=== PATIENT | male | born 2005 | race Caucasian/White ===

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

== ENCOUNTER 2024-06-03 13:37 | Emergency (ER) | payer MEDICAID, SELFPAY ==
[2024-06-03 14:16] VITALS: BP 113/74; PULSE 54; RESP 16; TEMP 36.6; O2SAT 98
[2024-06-03] MEDS: tetracaine 0.5% Op Soln 4 mL Btl 1 DROP EYE-LEFT (15:34)
[2024-06-03] MEDS: fluorescein 1 mg Strip EYE-LEFT (15:34)
--- NOTE | 2024-06-03 15:40 | ED_ITS ---
HPI - Eye Problem General: Chief complaint: Eye Problems Stated complaint: something in eye Time Seen by Provider: 06/03/24 14:23 Source: patient Mode of arrival: ambulatory Limitations: no limitations History of Present Illness: Patient is a 19-year-old male presenting to the emergency department complaining of left eye pain beginning suddenly onset prior to arrival. States he was walking outside in an unknown object floating to the air got in his eye, he has had irritation since. Reports sensitivity to light. He is denying any visual changes. Does not wear contacts. No fevers or other symptoms reported. He does state that he washed his eye out multiple times prior to presenting. MD chief complaint: eye pain and eye injury Onset (ago): minute(s) Onset description: sudden Duration: constant Location: left eye Eye Symptoms: pain and photophobia Place: street/outdoors Associated symptoms: Denies fever(s), headache(s), nausea or vomiting Related Data Home Medications Medication Instructions Recorded Confirmed clonidine HCl 0.3 mg tablet 0.3 mg PO BEDTIME 11/16/22 11/22/23 albuterol sulfate 90 mcg/actuation 2 puff inhalation QID PRN 11/18/22 11/22/23 aerosol inhaler Shortness Of Breath amitriptyline 25 mg tablet 25 mg PO BEDTIME PRN Sleep 11/22/23 11/22/23 fluticasone propionate 50 2 spray intranasal DAILY PRN 11/22/23 11/22/23 mcg/actuation nasal Allergy Symptoms spray,suspension (Flonase Allergy Relief) Previous Rx's Medication Instructions Recorded diclofenac potassium 50 mg tablet 50 mg PO BID PRN pain #20 tabs 11/22/23 ondansetron 8 mg disintegrating 8 mg PO .q6 PRN nausea and 11/22/23 tablet vomiting #14 tabs [id number] 3.5 1 drp ophthalmic (eye) Q12H #5 mL 06/03/24 mg/mL-10,000 unit/mL-0.1% eye drops (Maxitrol) Allergies Allergy/AdvReac Type Severity Reaction Status Date / Time No Known Allergies Allergy Verified 06/03/24 14:19 Review of Systems General: Reports: 10 or more systems reviewed and unremarkable except in HPI and below Const: Denies: fever(s) Eyes: Reports: photophobia and eye discomfort; Denies: change in vision, blurry vision or eye discharge Card: Denies: chest pain Resp: Denies: dyspnea GI: Denies: abdominal pain, nausea, vomiting or diarrhea Skin/Breast: Denies: rash Neuro: Denies: headache(s) PFSH ED PFSH: Medical History Insomnia ADHD Spontaneous pneumothorax Surgical History No pertinent past surgical history Family History Grandfather CAD (coronary artery disease) Grandmother CAD (coronary artery disease) Denies family history of Diabetes Cancer Hypertension Stroke Social History Smoking and tobacco/nicotine status: never used tobacco/nicotine Alcohol intake: current Alcohol intake frequency: 0-2 Drinks per Day Substance/Drug Use: current Substance/Drug use frequency: daily Adopted: No Lives independently: Yes Household members: none Housing: Manufactured/Mobile home Marital status: Single Pets and animals: Yes Pets & animals: dog(s) Physical Exam Const: COMMON NORMALS: no acute distress, patient oriented x3, no limitations and healthy appearing GENERAL APPEARANCE: cooperative ORIENTATION/CONSCIOUSNESS: Yes awake HENMT: COMMON NORMALS: normocephalic and atraumatic HEAD & SCALP: normocephalic and atraumatic Eye: COMMON NORMALS: Equal, round and reactive pupils present and EOMs intact bilaterally VISUAL ACUITY: Yes acuity normal PERIORBITAL: periorbital findings normal EYELID: eyelids normal CONJUNCTIVA: Yes conjunctival abnormal positive left (Mild injection diffuse) PUPIL: Yes Equal, round and reactive pupils present SLIT LAMP EXAM: Yes slit lamp exam performed with fluorescein, Yes lids/lashes/lacrimal system Lids/lashes/lacrimal system details: normal appearing and Yes cornea (Questionable abrasion just superior to the iris on the left) Neck/C-Spine: COMMON NORMALS: full ROM and no meningeal signs Resp: COMMON NORMALS: normal respiratory effort and No use of accessory muscles Extremity: COMMON NORMALS: normal to inspection and full ROM Neuro: COMMON NORMALS: patient oriented x3 and moves all extremities MENINGEAL SIGNS: Yes no meningeal signs Skin: COMMON NORMALS: no rashes or lesions noted GENERAL SKIN EXAM: no rashes or lesions noted Course Vital Signs: Vital signs: Vital Signs Temperature 98 F 06/03/24 14:16 Pulse Rate 54 L 06/03/24 14:16 Respiratory Rate 16 06/03/24 14:16 Blood Pressure 113/74 06/03/24 14:16 Pulse Oximetry 98 06/03/24 14:16 Oxygen Delivery Me thod Room Air 06/03/24 14:16 MDM - Eye Problem Medical Decision Making Patient reported injury to left eye after something flew in it while walking outside. Slit-lamp examination here was ultimately unremarkable, potentially a questionable uptake with fluorescein just superior to the iris on the left. There is very likely he did flush out the foreign object prior to presenting as he states he did this copiously. Upon examination here there is no evidence of a foreign body. He will be referred to ophthalmology as needed, will prescribe the Maxitrol prophylactically. He does report relieved after receiving tetracaine here. Patient discharged home at this time. No radiology studies performed this visit Discharge Plan Discharge Patient Disposition: Home Clinical Impression: Abrasion, corneal Condition: Stable Prescriptions: New neomycin-polymyxin B-dexameth [Maxitrol] 3.5mg/mL-10,000 unit/mL-0.1 % drops,suspension 1 drp ophthalmic (eye) Q12H Qty: 5 0RF No Action clonidine HCl 0.3 mg tablet 0.3 mg PO BEDTIME albuterol sulfate 90 mcg/actuation Hfa Aerosol Inhaler 2 puff INHALATION QID PRN (Reason: Shortness Of Breath) amitriptyline 25 mg tablet 25 mg PO BEDTIME PRN (Reason: Sleep) Flonase Allergy Relief 50 mcg/actuation spray,suspension 2 spray intranasal DAILY PRN (Reason: Allergy Symptoms) Rx Instructions: administer into each nostril ondansetron 8 mg tablet,disintegrating 8 mg PO .q6 PRN (Reason: nausea and vomiting) Qty: 14 0RF diclofenac potassium 50 mg tablet 50 mg PO BID PRN (Reason: pain) Qty: 20 0RF Discharge Orders: Discharge ED (Routine); Ordered 06/03/24 Ordered By: Victorino Denson Referrals: Gee Encarnacion MD [Primary Care Provider] - Patient Instructions: Corneal Abrasion (ED) Activity Restrictions/Additional Instructions: Follow-up with ophthalmology as needed. Maxitrol eyedrops. Continue flushing of the eye. Return with any new or worsening. Follow-up with primary care. Coding Level of Care Code ED [employer] for Sha Villalobos
[2024-06-03 16:10] VITALS: BP 111/68; PULSE 52; O2SAT 98
--- NOTE | 2024-06-04 01:09 | DCPLANNER ---
Referral to [facility] for follow up
== END 2024-06-03 16:11 | disposition home or self-care (01) ==
PROVIDERS: Emergency Provider Physician Assistant; PCP Pediatrics
DX: S05.02XA Injury of conjunctiva and corneal abrasion without foreign body, left eye, initial encounter (principal); X58.XXXA Exposure to other specified factors, initial encounter
CPT/HCPCS: 99283

== ENCOUNTER 2024-06-12 18:05 | Emergency (ER) | payer MEDICAID, SELFPAY ==
[2024-06-12 18:10] VITALS: BP 125/71; PULSE 69; RESP 17; TEMP 36.8; O2SAT 96; BMI 18.2
[2024-06-12 18:48] VITALS: BP 131/73; O2SAT 100
[2024-06-12] MEDS: prochlorperazine 10 mg/2 mL Inj IVP ×2 (18:56→22:10)
[2024-06-12] MEDS: sodium chloride 0.9% 1,000 ML 999 ML IV ×2 (18:56→20:05)
[2024-06-12 19:11] LABS: Basophils % 0.2 %; Eosinophils % 0.1 %; Hematocrit 43.6 % (37-53); Lymphocytes # 0.9 10^3/uL (1.5-6.5); Lymphocytes % 5.3 %; Mean Corpuscular HGB Conc 34.4 g/dL (30-55); Mean Corpuscular Hemoglobin 28.4 pg (27-33); Mean Corpuscular Volume 82.6 fl (82-101); Mean Platelet Volume 9.2 fL (7.4-10.4); Monocytes # 0.8 10^3/uL (0.2-0.9); Monocytes % 4.4 %; Neutrophils # 15.85 10^3/uL (1.8-8.0); Neutrophils % 89.5 %; Nucleated Red Blood Cells % 0 %; Platelet Count 430 10^3/cmm (157-399); Red Blood Count 5.28 10^6/uL (3.85-5.65); Red Cell Distribution Width 12.5 % (12.1-15.1); White Blood Count 17.69 10^3/uL (4.5-13.0)
[2024-06-12 19:26] LABS: Alanine Aminotransferase 23 U/L (0-41); Albumin Level 5.3 g/dL (3.5-5.2); Alkaline Phosphatase 111 U/L (40-130); Aspartate Amino Transferase 22 U/L (0-40); Blood Urea Nitrogen 17 mg/dL (6-20); Calcium 9.7 mg/dL (8.5-10.5); Carbon Dioxide 21 mmol/L (22-29); Chloride 100 mmol/L (98-107); Creatinine Clr Calc Pharmacy 113.3979; Globulin 2.2 g/dL (1.3-4.6); Glomerular Filtration Rate 123.2 mL/min (90-130); Glucose 146 mg/dL (65-115); Lipase 10 U/L (13-60); Osmolality Calculated 294 mOsm/kg (285-295); Sodium 140 mmol/L (136-145); Total Bilirubin 0.9 mg/dL (0.15-1.2); Total Protein 7.5 g/dL (6.6-8.7)
--- NOTE | 2024-06-12 19:26 | CTR_ITS ---
PROCEDURE INFORMATION: Exam: CT Abdomen And Pelvis With Contrast Exam date and time: 06/12/2024 7:37 PM Age: 19 years old Clinical indication: Pain and abnormal findings; Abnormal lab test; Elevated wbc; Nausea and vomiting; Abdominal pain; Generalized; Patient HX: C/O persistent abd pain with n/v since eating sonic yesterday. Wbc of 17k. ; Additional info: Abdominal pain, nausea vomiting, leukocytosis TECHNIQUE: Imaging protocol: Computed tomography of the abdomen and pelvis with contrast. Radiation optimization: All CT scans at this facility use at least one of these dose optimization techniques: automated exposure control; mA and/or kV adjustment per patient size (includes targeted exams where dose is matched to clinical indication); or iterative reconstruction. Contrast material: OMNI 350; Contrast volume: 80 ml; Contrast route: INTRAVENOUS (IV); COMPARISON: CT abdomen pelvis w con* [id number] 11/17/2022 1:45 AM RADIATION DOSE METRICS: Total DLP (mGy-cm): 202.33 FINDINGS: Liver: Normal. No mass. Gallbladder and biliary ducts: Normal. No calcified stones. No ductal dilation. Pancreas: Normal. No ductal dilation. Spleen: Normal. No splenomegaly. Adrenal glands: Normal. No mass. Kidneys and ureters: Normal. No hydronephrosis. Stomach and bowel: Unremarkable. No obstruction. No mucosal thickening. Appendix: No evidence of appendicitis. Intraperitoneal space: Unremarkable. No free air. No significant fluid collection. Vasculature: Unremarkable. No abdominal aortic aneurysm. Lymph nodes: Unremarkable. No enlarged lymph nodes. Urinary bladder: Unremarkable as visualized. Reproductive: Unremarkable as visualized. Bones/joints: Unremarkable. No acute fracture. Soft tissues: Unremarkable. CT/CT abdomen pelvis w con* [id number] IMPRESSION: No acute findings.
[2024-06-12 19:27] LABS: Lactic Sepsis W/Reflex 3.6 mmol/L (0.5-2.2)
[2024-06-12 19:28] LABS: Anion Gap 22.7 (5-19); Potassium 3.7 mmol/L (3.5-5.1)
[2024-06-12] MEDS: iohexol 350 mg/mL 500 mL Btl (per mL) IV (19:41)
[2024-06-12 20:33] LABS: Bilirubin Urine Negative (Negative); Blood Urine Negative (Negative); Glucose Urine UA Negative (Normal); Ketones Urine 3+ (Negative); Leukocyte Esterase Urine Negative (Negative); Nitrate Urine Negative (Negative); Protein Urine 2+ (Negative); Urine Appearance Clear (CLEAR); Urine Color Yellow (Yellow); pH Urine >=9.0 (5-7)
[2024-06-12 20:37] VITALS: BP 97/50; PULSE 97; O2SAT 100
[2024-06-12 20:38] LABS: Add Urine Microscopic? YES; Bacteria Urine None Seen /hpf; RBC Urine 0-2 /hpf (0-2); Squamous Epithelial Cell Urine 0-5 /hpf (0-5); WBC Urine 0-5 /hpf (0-5)
[2024-06-12 20:39] LABS: Specific Gravity, Urine 1.087 (1.005-1.030)
[2024-06-12 20:56] LABS: Reflex Lactate Order REFLEX LACTIC ORDERD
--- NOTE | 2024-06-12 21:42 | W.ED.NAVMDI ---
HPI - Nausea/Vomiting/Diarrhea General: Chief complaint: Nausea/Vomiting/Diarrhea Stated complaint: believes food poisoning Time Seen by Provider: 06/12/24 18:18 History of Present Illness: Patient is a 19-year-old male that presents to the emergency department with complaints of epigastric pain nausea and vomiting. Onset of symptoms last night after eating at [employer]. States he is trialed Zofran without relief. Patient is ill-appearing. He is pale. Patient has a medical history that includes ADHD, insomnia, prior spontaneous pneumothorax Associated nausea: Yes Associated symtoms: Reports fatigue and nausea; Denies bloating, chest pain, dizziness, dysuria, headache(s), malaise or palpitations Related Data Home Medications Medication Instructions Recorded Confirmed clonidine HCl 0.3 mg tablet 0.3 mg PO BEDTIME 11/16/22 11/22/23 albuterol sulfate 90 mcg/actuation 2 puff inhalation QID PRN 11/18/22 11/22/23 aerosol inhaler Shortness Of Breath amitriptyline 25 mg tablet 25 mg PO BEDTIME PRN Sleep 11/22/23 11/22/23 fluticasone propionate 50 2 spray intranasal DAILY PRN 11/22/23 11/22/23 mcg/actuation nasal Allergy Symptoms spray,suspension (Flonase Allergy Relief) Previous Rx's Medication Instructions Recorded diclofenac potassium 50 mg tablet 50 mg PO BID PRN pain #20 tabs 11/22/23 ondansetron 8 mg disintegrating 8 mg PO .q6 PRN nausea and 11/22/23 tablet vomiting #14 tabs [id number] 3.5 1 drp ophthalmic (eye) Q12H #5 mL 06/03/24 mg/mL-10,000 unit/mL-0.1% eye drops (Maxitrol) prochlorperazine maleate 10 mg 10 mg PO Q8H PRN nausea and 06/12/24 tablet (Compazine) vomiting 2 days #7 tabs promethazine 12.5 mg rectal 12.5 mg CA TID PRN nausea and 06/12/24 suppository vomiting #12 ea Allergies Allergy/AdvReac Type Severity Reaction Status Date / Time No Known Allergies Allergy Verified 06/03/24 14:19 Review of Systems General: Reports: 10 or more systems reviewed and unremarkable except in HPI and below Const: Reports: change in appetite and fatigue; Denies: fever(s), chills, change in weight or malaise Card: Denies: chest pain, palpitations, irregular heart rhythm, edema, dyspnea on exertion, orthopnea or leg pain with exertion Resp: Denies: dyspnea, productive cough, non-productive cough, wheezing, stridor or chest congestion GI: Reports: abdominal pain, nausea and vomiting; Denies: dysphagia, diarrhea, constipation, bloating, GI cramping or hematochezia : Denies: flank pain, dysuria, urinary frequency, urinary urgency, urinary hesitancy, oliguria or hematuria Neuro: Denies: headache(s), numbness in extremities, weakness in extremities, sensory changes, lack of coordination, difficulty walking, frequent falls, dizziness, confusion, Slurred speech present, difficulty communicating thoughts, seizure-like activity or involuntary movements Endo: Denies: polyuria, polydipsia or tired all the time PFSH ED PFSH: Medical History Insomnia ADHD Spontaneous pneumothorax Surgical History No pertinent past surgical history Family History Grandfather CAD (coronary artery disease) Grandmother CAD (coronary artery disease) Denies family history of Diabetes Cancer Hypertension Stroke Social History Smoking and tobacco/nicotine status: never used tobacco/nicotine Alcohol intake: current Alcohol intake frequency: 0-2 Drinks per Day Substance/Drug Use: current Substance/Drug use frequency: daily Adopted: No Lives independently: Yes Household members: none Housing: Manufactured/Mobile home Marital status: Single Pets and animals: Yes Pets & animals: dog(s) Physical Exam Const: COMMON NORMALS: no acute distress, average body habitus, patient oriented x3, no limitations, alert and well nourished HENMT: COMMON NORMALS: normocephalic, atraumatic, hearing grossly normal bilaterally, external ears normal, Normal external nose present, moist oral mucous membranes and oropharynx normal HEAD & SCALP: normocephalic and atraumatic NOSE: Normal external nose present EXTERNAL EAR: Yes external ears normal Neck/C-Spine: COMMON NORMALS: no JVD Chest: COMMONS NORMALS: normal inspection of the chest and normal palpation of entire chest wall Resp: COMMON NORMALS: normal respiratory effort, No retractions, No use of accessory muscles and clear to auscultation bilaterally AUSCULTATION: clear to auscultation bilaterally Cardio: COMMON NORMALS: no JVD, regular rhythm, S1 normal heart sound present, S2 normal heart sound present, No gallops present (Cardio), No clicks present (Cardio), No murmurs present (Cardio) and No rub (Cardio); negative for regular rate (Tachycardia) RATE: abnormal rate (Tachycardia) RHYTHM: regular rhythm HEART SOUNDS: S1 normal heart sound present and S2 normal heart sound present GI: COMMON NORMALS: Normal to inspection, nondistended, normoactive bowel sounds present, Soft to palpation, No hepatosplenomegaly present and no masses PALPATION: Yes Soft to palpation, Yes Tenderness to palpation present (GI) (Diffuse), No Guarding due to palpation present (GI), No Rigid due to palpation and Yes No hepatosplenomegaly present Neuro: COMMON NORMALS: patient oriented x3 SENSORIUM/ORIENTATION: Yes alert Course Vital Signs: Vital signs: Vital Signs Temperature 98.3 F 06/12/24 18:10 Pulse Rate 103 H 06/12/24 22:00 Respiratory Rate 18 06/12/24 22:00 Blood Pressure 126/61 06/12/24 22:46 Pulse Oximetry 95 06/12/24 22:00 Oxygen Delivery Me thod Room Air 06/12/24 22:00 MDM - Nausea/Vomiting/Diarrhea Medical Decision Making Patient is a 19-year-old male that presents to the emergency department with epigastric abdominal pain nausea and vomiting since eating at [employer] last night. Patient has trialed home Zofran without relief. Here in the emergency department he underwent a laboratory evaluation that included CBC, CMP, lipase, lactic and urinalysis. Lactic acid was elevated he had a white count of 17,000. I ordered a CT of the abdomen pelvis with contrast. Imaging reveals no acute abnormality. Patient was given 2.5 L of normal saline and Compazine. He reported much improvement in his symptoms. When reevaluated he reports that his symptoms have resolved. Due to his last set of 3.6, I did elect to wait for the reflex lactic which was 0.8. Patient did require another dose of Compazine. Heart rate has improved pain much better. Patient is going to be sent home with another dose of Compazine p.o. Unfortunately, we do not carry any rectal antiemetics to send home with him as a rescue med. I will prescribe these. Lab Data 06/12/24 19:03 06/12/24 19:03 Radiology Impressions Abdomen/Pelvis CT 06/12/24 19:26 IMPRESSION: No acute findings. Laboratory Results WBC 17.69 10^3/uL (4.5-13.0) H 06/12/24 19:03 RBC 5.28 10^6/uL (3.85-5.65) 06/12/24 19:03 Hgb 15.00 g/dL (13.2-15.6) 06/12/24 19:03 Hct 43.6 % (37-53) 06/12/24 19:03 MCV 82.6 fl (82-101) 06/12/24 19: MCH 28.4 pg (27-33) 06/12/24 19:03 MCHC 34.4 g/dL (30-55) 06/12/24 19:03 RDW 12.5 % (12.1-15.1) 06/12/24 19:03 Plt Count 430 10^3/cmm (157-399) H 06/12/24 19:03 MPV 9.2 fL (7.4-10.4) 06/12/24 19:03 Neut % (Auto) 89.5 % 06/12/24 19:03 Lymph % (Auto) 5.3 % 06/12/24 19:03 George % (Auto) 4.4 % 06/12/24 19:03 Eos % (Auto) 0.1 % 06/12/24 19:03 Baso % (Auto) 0.2 % 06/12/24 19:03 Neut # (Auto) 15.85 10^3/uL (1.8-8.0) H 06/12/24 19:03 Lymph # (Auto) 0.9 10^3/uL (1.5-6.5) L 06/12/24 19:03 George # (Auto) 0.8 10^3/uL (0.2-0.9) 06/12/24 19:03 Eos # (Auto) 0.0 10^3/uL (0.0-0.8) 06/12/24 19:03 Baso # (Auto) 0.0 10^3/uL (0.0-0.1) 06/12/24 19:03 Nucleated RBC % (auto) 0 % 06/12/24 19:03 Nucleated RBCs # 0.0 /100WBC 06/12/24 19:03 Sodium 140 mmol/L (136-145) 06/12/24 19:03 Potassium 3.7 mmol/L (3.5-5.1) 06/12/24 19:03 Chloride 100 mmol/L (98-107) 06/12/24 19:03 Carbon Dioxide 21 mmol/L (22-29) L 06/12/24 19:03 Anion Gap 22.7 (5-19) H 06/12/24 19:03 BUN 17 mg/dL (6-20) 06/12/24 19:03 Creatinine 0.8 mg/dL (0.7-1.2) 06/12/24 19:03 GFR Calculation 123.2 mL/min (90-130) 06/12/24 19:03 Glucose 146 mg/dL (65-115) H 06/12/24 19:03 Calculated Osmolality 294 mOsm/kg (285-295) 06/12/24 19:03 Lactic Acid 3.6 mmol/L (0.5-2.2) H 06/12/24 19:03 Lactic Acid (Sepsis) 0.8 mmol/L (0.5-2.2) 06/12/24 22:02 Calcium 9.7 mg/dL (8.5-10.5) 06/12/24 19:03 Total Bilirubin 0.9 mg/dL (0.15-1.2) 06/12/24 19:03 AST 22 U/L (0-40) 06/12/24 19:03 ALT 23 U/L (0-41) 06/12/24 19:03 Alkaline Phosphatase 111 U/L (40-130) 06/12/24 19:03 Total Protein 7.5 g/dL (6.6-8.7) 06/12/24 19:03 Albumin 5.3 g/dL (3.5-5.2) H 06/12/24 19:03 Globulin 2.2 g/dL (1.3-4.6) 06/12/24 19:03 Lipase 10 U/L (13-60) L 06/12/24 19:03 Urine Color Yellow (Yellow) 06/12/24 20:22 Urine Appearance Clear (CLEAR) 06/12/24 20:22 Urine pH >=9.0 (5-7) A 06/12/24 20: Ur Specific [place] 1.087 (1.005-1.030) H 06/12/24 20:22 Urine Protein 2+ (Negative) A 06/12/24 20: Urine Glucose (UA) Negative (Normal) 06/12/24 20: Urine Ketones 3+ (Negative) H 06/12/24 20:22 Urine Blood Negative (Negative) 06/12/24 20: Urine Nitrate Negative (Negative) 06/12/24 20: Urine Bilirubin Negative (Negative) 06/12/24 20: Urine Urobilinogen 1.0 mg/dL (Negative) 06/12/24 20:22 Ur Leukocyte Esterase Negative (Negative) 06/12/24 20:22 Urine RBC 0-2 /hpf (0-2) 06/12/24 20:22 Urine WBC 0-5 /hpf (0-5) 06/12/24 20:22 Ur Squamous Epith Cells 0-5 /hpf (0-5) 06/12/24 20:22 Amorphous Sediment Not Reportable 06/12/24 20:22 Urine Bacteria None seen /hpf (NONE) 06/12/24 20:22 Hyaline Casts 0.40 /lpf 06/12/24 20:22 All radiology interpretation(s) finalized by discharge Discharge Plan Discharge Patient Disposition: Home Clinical Impression: Nausea & vomiting, Acute dehydration, Leukocytosis Condition: Stable Prescriptions: New prochlorperazine maleate [Compazine] 10 mg tablet 10 mg PO Q8H PRN (Reason: nausea and vomiting) 2 Days Qty: 7 0RF promethazine 12.5 mg suppository 12.5 mg CA TID PRN (Reason: nausea and vomiting) Qty: 12 0RF Rx Instructions: Uses a rescue medicine if you are unable to keep the Compazine down No Action clonidine HCl 0.3 mg tablet 0.3 mg PO BEDTIME albuterol sulfate 90 mcg/actuation Hfa Aerosol Inhaler 2 puff INHALATION QID PRN (Reason: Shortness Of Breath) neomycin-polymyxin B-dexameth [Maxitrol] 3.5mg/mL-10,000 unit/mL-0.1 % drops,suspension 1 drp ophthalmic (eye) Q12H Qty: 5 0RF amitriptyline 25 mg tablet 25 mg PO BEDTIME PRN (Reason: Sleep) Flonase Allergy Relief 50 mcg/actuation spray,suspension 2 spray intranasal DAILY PRN (Reason: Allergy Symptoms) Rx Instructions: administer into each nostril ondansetron 8 mg tablet,disintegrating 8 mg PO .q6 PRN (Reason: nausea and vomiting) Qty: 14 0RF diclofenac potassium 50 mg tablet 50 mg PO BID PRN (Reason: pain) Qty: 20 0RF Discharge Orders: Discharge ED (Routine); Ordered 06/12/24 Ordered By: Madison Hemphill Referrals: Gee Encarnacion MD [Primary Care Provider] - Discharge Diet: Advance as tolerated and Clear Liquid Discharge Activity: Resume usual activity Patient Instructions: Pain Management, Acute Nausea and Vomiting (DC), Abdominal Pain (ED), Acute Nausea and Vomiting (ED) Activity Restrictions/Additional Instructions: Please monitor your symptoms closely. You have Zofran at home but have also provided you with Compazine that you can take every 8 hours as needed. These are similar medications and if you are using them habitually, you may have a complication. I have also provided you with Phenergan suppositories. Please use these only as rescue medicines when you are unable to keep Compazine or Zofran down. Now were not sure the cause of your nausea and vomiting. You do have a high white count but I am not finding a source of infection. There is nothing on CT to suggest a surgical issue. If you do not improve or if you worsen you need to be reevaluated. I want you to with your primary care doctor. Chronic issues like this are best prevented in the primary care office and not in the emergency room. Once vomiting starts to have little option but to come to the emergency department and undergo a battery of tests and a long ER visit. I want you to avoid marijuana use until this episode stops. And then you may consider monitoring when your symptoms start and when you have use marijuana. There is a phenomenon where excessive use of marijuana can precipitate episodes like this Coding Level of Care Code ED Vibratory Pile Driver for Sha Villalobos
[2024-06-12 22:00] VITALS: PULSE 103; RESP 18; O2SAT 95
[2024-06-12] MEDS: sodium chloride 0.9% 500 ML 999 ML IV (22:05)
[2024-06-12 22:33] LABS: Lactic Acid level (Lactate) 0.8 mmol/L (0.5-2.2)
[2024-06-12 22:46] VITALS: BP 126/61
[2024-06-12] MEDS: prochlorperazine 10 mg Tablet PO (23:22)
[2024-06-12 23:32] VITALS: BP 116/54; PULSE 120; O2SAT 98
== END 2024-06-12 23:33 | disposition home or self-care (01) ==
PROVIDERS: Emergency Provider Nurse Practitioner; PCP Pediatrics
DX: R11.2 Nausea with vomiting, unspecified (principal); E86.0 Dehydration; D72.829 Elevated white blood cell count, unspecified
CPT/HCPCS: 36415; 74177; 80053; 81001; 83605; 83690; 85025; 96361; 96374; 96376; 99285; J0780; J7030; J7040; Q0164

== ENCOUNTER 2024-07-22 00:53 | Emergency (ER) | payer MEDICAID, SELFPAY ==
[2024-07-22 00:57] VITALS: BP 140/97; PULSE 67; RESP 16; TEMP 36.6; O2SAT 99; BMI 19.0
--- NOTE | 2024-07-22 01:02 | W.ED.EAR ---
HPI - Ear Problem General: Chief complaint: Ear Stated complaint: Left Side Ear Pain Time Seen by Provider: 07/22/24 00:56 History of Present Illness: Patient resents with left-sided ear pain. He said he got a big chunk of wax out of it earlier today and has been hurting more ever since then. Patient denies any fever chills coughs colds nausea vomiting. Patient's hearing is intact. Related Data Home Medications Medication Instructions Recorded Confirmed clonidine HCl 0.3 mg tablet 0.3 mg PO BEDTIME 11/16/22 11/22/23 albuterol sulfate 90 mcg/actuation 2 puff inhalation QID PRN 11/18/22 11/22/23 aerosol inhaler Shortness Of Breath amitriptyline 25 mg tablet 25 mg PO BEDTIME PRN Sleep 11/22/23 11/22/23 fluticasone propionate 50 2 spray intranasal DAILY PRN 11/22/23 11/22/23 mcg/actuation nasal Allergy Symptoms spray,suspension (Flonase Allergy Relief) Previous Rx's Medication Instructions Recorded diclofenac potassium 50 mg tablet 50 mg PO BID PRN pain #20 tabs 11/22/23 ondansetron 8 mg disintegrating 8 mg PO .q6 PRN nausea and 11/22/23 tablet vomiting #14 tabs [id number] 3.5 1 drp ophthalmic (eye) Q12H #5 mL 06/03/24 mg/mL-10,000 unit/mL-0.1% eye drops (Maxitrol) promethazine 12.5 mg rectal 12.5 mg [place] TID PRN nausea and 06/12/24 suppository vomiting #12 ea Allergies Allergy/AdvReac Type Severity Reaction Status Date / Time No Known Allergies Allergy Verified 07/22/24 01:00 Review of Systems General: Reports: 10 or more systems reviewed and unremarkable except in HPI and below PFSH ED PFSH: Medical History Insomnia ADHD Spontaneous pneumothorax Surgical History No pertinent past surgical history Family History Grandfather CAD (coronary artery disease) Grandmother CAD (coronary artery disease) Denies family history of Diabetes Cancer Hypertension Stroke Social History Smoking and tobacco/nicotine status: never used tobacco/nicotine Alcohol intake: current Alcohol intake frequency: 0-2 Drinks per Day Substance/Drug Use: current Substance/Drug use frequency: daily Adopted: No Lives independently: Yes Household members: none Housing: Manufactured/Mobile home Marital status: Single Pets and animals: Yes Pets & animals: dog(s) Physical Exam Const: COMMON NORMALS: no acute distress, average body habitus, patient oriented x3, no limitations, healthy appearing, alert and well nourished HENMT: COMMON NORMALS: normocephalic, atraumatic, hearing grossly normal bilaterally, external ears normal, TM's normal bilaterally, Normal external nose present and moist oral mucous membranes; not EAC's normal (Left inferior side of the auditory canal red irritated not infected looking) HEAD & SCALP: normocephalic and atraumatic NOSE: Normal external nose present EXTERNAL EAR: Yes external ears normal EXTERNAL AUDITORY CANAL: EAC(s) not normal (Left inferior side of the auditory canal red irritated not infected looking) TYMPANIC MEMBRANE: TM's normal bilaterally Neck/C-Spine: COMMON NORMALS: full ROM, no lymphadenopathy, supple, no meningeal signs, no JVD and Thyroid normal THYROID: Thyroid normal Chest: COMMONS NORMALS: normal inspection of the chest and normal palpation of entire chest wall Resp: COMMON NORMALS: normal respiratory effort, No retractions, No use of accessory muscles and clear to auscultation bilaterally AUSCULTATION: clear to auscultation bilaterally Cardio: COMMON NORMALS: no JVD, regular rate, regular rhythm, S1 normal heart sound present, S2 normal heart sound present, No gallops present (Cardio), No clicks present (Cardio), No murmurs present (Cardio) and No rub (Cardio) RATE: regular rate RHYTHM: regular rhythm HEART SOUNDS: S1 normal heart sound present and S2 normal heart sound present Neuro: COMMON NORMALS: patient oriented x3 SENSORIUM/ORIENTATION: Yes alert MENINGEAL SIGNS: Yes no meningeal signs Course Vital Signs: Vital signs: Vital Signs Temperature 97.8 F 07/22/24 00:57 Pulse Rate 67 07/22/24 00:57 Respiratory Rate 16 07/22/24 00:57 Blood Pressure 140/97 12/12/24 00:57 Pulse Oximetry 99 07/22/24 00:57 Oxygen Delivery Me thod Room Air 07/22/24 00:57 MDM - Ear Medical Decision Making Patient's tympanic membrane external auditory canal was examined is just mildly red on the inferior portion of the external auditory canal probably where he removed a piece of wax. Patient will have some viscous lidocaine instilled in his ear and will be discharged home. Medical Records I reviewed the patient's medical records. Lab Data I reviewed the patient's lab results. No radiology studies performed this visit Discharge Plan Discharge Patient Disposition: Home Clinical Impression: Acute otalgia Condition: Stable Prescriptions: No Action clonidine HCl 0.3 mg tablet 0.3 mg PO BEDTIME albuterol sulfate 90 mcg/actuation Hfa Aerosol Inhaler 2 puff INHALATION QID PRN (Reason: Shortness Of Breath) neomycin-polymyxin B-dexameth [Maxitrol] 3.5mg/mL-10,000 unit/mL-0.1 % drops,suspension 1 drp ophthalmic (eye) Q12H Qty: 5 0RF promethazine 12.5 mg suppository 12.5 mg [place] TID PRN (Reason: nausea and vomiting) Qty: 12 0RF Rx Instructions: Uses a rescue medicine if you are unable to keep the Compazine down amitriptyline 25 mg tablet 25 mg PO BEDTIME PRN (Reason: Sleep) Flonase Allergy Relief 50 mcg/actuation spray,suspension 2 spray intranasal DAILY PRN (Reason: Allergy Symptoms) Rx Instructions: administer into each nostril ondansetron 8 mg tablet,disintegrating 8 mg PO .q6 PRN (Reason: nausea and vomiting) Qty: 14 0RF diclofenac potassium 50 mg tablet 50 mg PO BID PRN (Reason: pain) Qty: 20 0RF Discharge Orders: Discharge ED (Routine); Ordered 07/22/24 Ordered By: Michael Ocampo Referrals: Jesus Love MD [Primary Care Provider] - 1 week Patient Instructions: Earache (ED) Activity Restrictions/Additional Instructions: Your left ear canal was mildly red and irritated probably from the wax you removed from your ear. It does not look infected at this time. We have placed lidocaine in your ear which should help with the pain. Otherwise please continue take [id number] Tylenol Motrin and follow-up with your primary care doctor as needed. Coding Level of Care Code ED Mechanical Energy Engineer for Sha Villalobos
[2024-07-22] MEDS: lidocaine 2% viscous 15 mL UDC 3 ML TOPICAL (01:13)
[2024-07-22 01:20] VITALS: BP 130/90; PULSE 60; O2SAT 99
== END 2024-07-22 01:22 | disposition home or self-care (01) ==
PROVIDERS: Emergency Provider Emergency Medicine; PCP Family Medicine
DX: H92.02 Otalgia, left ear (principal)
CPT/HCPCS: 99283

== ENCOUNTER 2024-12-24 17:15 | Emergency (ER) | payer MEDICAID, SELFPAY ==
[2024-12-24 17:30] VITALS: BP 138/95; PULSE 71; RESP 16; TEMP 36.4; O2SAT 98
[2024-12-24 18:02] VITALS: BP 122/80; PULSE 70; RESP 16; O2SAT 98
[2024-12-24] MEDS: sodium chloride 0.9% 1,000 ML 999 ML IV ×2 (19:15→21:23)
[2024-12-24] MEDS: ondansetron 2 mg/ML SDV 2 mL 8 MG IVP (19:15)
[2024-12-24] MEDS: haloperidol inj 5 mg/mL INJ 1 mL 2.5 MG IVP (19:15)
[2024-12-24] MEDS: ketorolac 30 mg/mL INJ 15 MG IVP (19:16)
[2024-12-24 19:17] LABS: Basophils # 0.1 10^3/uL (0.0-0.1); Basophils % 0.3 %; Eosinophils % 0.1 %; Hematocrit 43.9 % (37-53); Lymphocytes # 1.1 10^3/uL (1.5-6.5); Lymphocytes % 4.6 %; Mean Corpuscular HGB Conc 34.4 g/dL (30-55); Mean Corpuscular Hemoglobin 28.5 pg (27-33); Mean Corpuscular Volume 82.8 fl (82-101); Mean Platelet Volume 9.4 fL (7.4-10.4); Monocytes # 1.3 10^3/uL (0.2-0.9); Monocytes % 5.3 %; Neutrophils # 21.99 10^3/uL (1.8-8.0); Neutrophils % 88.7 %; Nucleated Red Blood Cells % 0 %; Platelet Count 453 10^3/cmm (157-399); Red Cell Distribution Width 12.2 % (12.1-15.1)
[2024-12-24 19:58] LABS: Alanine Aminotransferase 21 U/L (0-41); Albumin Level 4.9 g/dL (3.5-5.2); Alkaline Phosphatase 104 U/L (40-130); Anion Gap 23.7 (5-19); Aspartate Amino Transferase 23 U/L (0-40); Blood Urea Nitrogen 10 mg/dL (6-20); Calcium 9.9 mg/dL (8.5-10.5); Carbon Dioxide 19 mmol/L (22-29); Chloride 103 mmol/L (98-107); Creatinine Clr Calc Pharmacy 151.1972; Globulin 3.1 g/dL (1.3-4.6); Glomerular Filtration Rate 171.8 mL/min (90-130); Glucose 139 mg/dL (65-115); Osmolality Calculated 295 mOsm/kg (285-295); Potassium 3.7 mmol/L (3.5-5.1); Sodium 142 mmol/L (136-145); Total Bilirubin 0.5 mg/dL (0.15-1.2)
[2024-12-24 19:59] LABS: Lactic Sepsis W/Reflex 3.6 mmol/L (0.5-2.2)
[2024-12-24 20:38] VITALS: BP 107/70; O2SAT 97
[2024-12-24 20:59] LABS: Reflex Lactate Order REFLEX LACTIC ORDERD
[2024-12-24 21:23] LABS: Bilirubin Urine Negative (Negative); Blood Urine Negative (Negative); Glucose Urine UA Negative (Normal); Ketones Urine 3+ (Negative); Leukocyte Esterase Urine Trace (Negative); Nitrate Urine Negative (Negative); Protein Urine 2+ (Negative); Specific Gravity, Urine 1.024 (1.005-1.030); Urine Appearance Clear (CLEAR); Urine Color Yellow (Yellow); pH Urine >=9.0 (5-7)
[2024-12-24 21:28] LABS: Add Urine Microscopic? YES; Bacteria Urine None Seen /hpf; Hyaline Casts Urine 16.96 /lpf; RBC Urine 0-2 /hpf (0-2); Squamous Epithelial Cell Urine 0-5 /hpf (0-5)
[2024-12-24 21:34] LABS: Lactic Acid level (Lactate) 1.6 mmol/L (0.5-2.2)
[2024-12-24] MEDS: promethazine 25 mg/mL SDV 1 mL IM (21:50)
[2024-12-24 22:09] LABS: UA Slide Review UA Slide Review Perf
--- NOTE | 2024-12-24 23:31 | W.ED.NAVMDI ---
HPI - Nausea/Vomiting/Diarrhea General: Chief complaint: Nausea/Vomiting/Diarrhea Stated complaint: vomitting Time Seen by Provider: 12/24/24 18:29 Source: patient Mode of arrival: ambulatory Limitations: no limitations History of Present Illness: Nausea vomiting all day long. Presents here with his mom. For triage mom was answering most questions. Patient reports that he has been vomiting all day and when he gets like this he has to get some help. Mother reports he was also outside doing some work on the top of the judoer roof in the morning. And had some issues. Unable to stop vomiting. Does use marijuana. Denies fever, abdominal pain. Only just abdominal burning when vomiting. Is still requesting water and is thirsty despite knowing that he swallows it makes him vomit again. Related Data Home Medications ?Medication ?Instructions ?Recorded ?Confirmed clonidine HCl 0.3 mg tablet 0.3 mg PO BEDTIME 11/16/22 07/26/24 albuterol sulfate 90 mcg/actuation 2 puff inhalation QID PRN 11/18/22 07/26/24 aerosol inhaler Shortness Of Breath amitriptyline 25 mg tablet 25 mg PO BEDTIME PRN Sleep 11/22/23 07/26/24 fluticasone propionate 50 2 spray intranasal DAILY PRN 11/22/23 07/26/24 mcg/actuation nasal Allergy Symptoms spray,suspension (Flonase Allergy Relief) Previous Rx's ?Medication ?Instructions ?Recorded diclofenac potassium 50 mg tablet 50 mg PO BID PRN pain #20 tabs 11/22/23 ondansetron 8 mg disintegrating 8 mg PO .q6 PRN nausea and 11/22/23 tablet vomiting #14 tabs cephalexin 500 mg capsule 500 mg PO TID 7 days #21 caps 07/26/24 promethazine 25 mg rectal 25 mg SC Q6H PRN nausea and 12/24/24 suppository vomiting #12 ea Allergies Allergy/AdvReac Type Severity Reaction Status Date / Time No Known Allergies Allergy Verified 07/26/24 13:10 Review of Systems General: Reports: 10 or more systems reviewed and unremarkable except in HPI and below PFSH ED PFSH: Medical History Insomnia ADHD Spontaneous pneumothorax Surgical History No pertinent past surgical history Family History Grandfather CAD (coronary artery disease) Grandmother CAD (coronary artery disease) Denies family history of Diabetes Cancer Hypertension Stroke Social History Smoking and tobacco/nicotine status: tobacco/nicotine user, details unknown Alcohol intake: current Alcohol intake frequency: 0-2 Drinks per Day Substance/Drug Use: current Substance/Drug use frequency: daily Adopted: No Lives independently: Yes Household members: none Housing: Manufactured/Mobile home Marital status: Single Pets and animals: Yes Pets & animals: dog(s) Physical Exam Narrative: EXAM NARRATIVE: Thin naturally pale-colored 19-year-old male Const: COMMON NORMALS: no acute distress, average body habitus, patient oriented x3, healthy appearing, alert and well nourished GENERAL APPEARANCE: well kempt and well developed HENMT: COMMON NORMALS: normocephalic, atraumatic, external ears normal and moist oral mucous membranes HEAD & SCALP: normocephalic and atraumatic EXTERNAL EAR: Yes external ears normal Eye: COMMON NORMALS: Equal, round and reactive pupils present, EOMs intact bilaterally and conjunctivae normal CONJUNCTIVA: Yes conjunctivae normal PUPIL: Yes Equal, round and reactive pupils present Neck/C-Spine: COMMON NORMALS: full ROM, no lymphadenopathy and supple Chest: CHEST: Yes Symmetrical chest wall rise and No Surgical scars present (Chest) Resp: COMMON NORMALS: normal respiratory effort, No retractions, No use of accessory muscles and clear to auscultation bilaterally AUSCULTATION: clear to auscultation bilaterally Cardio: COMMON NORMALS: regular rate, regular rhythm, S1 normal heart sound present, S2 normal heart sound present, No gallops present (Cardio), No clicks present (Cardio), No murmurs present (Cardio) and No rub (Cardio) RATE: regular rate RHYTHM: regular rhythm HEART SOUNDS: S1 normal heart sound present, S2 normal heart sound present and no murmurs PERIPHERAL PULSES: other (Radial pulses 2+ and symmetric) GI: COMMON NORMALS: Soft to palpation, non-tender and no masses INSPECTION: No abdominal distension PALPATION: Yes Soft to palpation, No Guarding due to palpation present (GI) and No Rebound tenderness present : COMMON NORMALS: Yes no CVA tenderness BLADDER/KIDNEY EXAM: Yes no CVA tenderness Back/Pelvis: COMMON NORMALS: no CVA tenderness Extremity: COMMON NORMALS: normal to inspection, full ROM, capillary refill normal and no clubbing, cyanosis or edema Neuro: COMMON NORMALS: patient oriented x3 SENSORIUM/ORIENTATION: Yes alert Psych: APPEARANCE: Yes well kempt Skin: COMMON NORMALS: no rashes or lesions noted, no wounds, turgor normal and no jaundice GENERAL SKIN EXAM: no rashes or lesions noted and turgor normal Course Vital Signs: Vital signs: Vital Signs Temperature 97.6 F 12/24/24 17:30 Pulse Rate 70 12/24/24 18:02 Respiratory Rate 16 12/24/24 18:02 Blood Pressure 107/70 12/24/24 20:38 Pulse Oximetry 97 12/24/24 20:38 Oxygen Delivery Me thod Room Air 12/24/24 17:30 MDM - Nausea/Vomiting/Diarrhea Medical Decision Making Patient with nausea vomiting intractable all day long at home. Been unable to get better. Given Zofran and a small dose of Haldol. Still has some vomiting later. Then given Phenergan IM. Found the vomiting has stopped patient reports he is improved and is requesting home. He was given 2 L of saline. His lactic acid improved from elevated to normal. White count is largely from dehydration and demargination. Abdomen not tender enough to justify scans though they were considered. Medical Records I reviewed the patient's medical records. Lab Data I reviewed the patient's lab results. 12/24/24 18:34 12/24/24 18:34 Laboratory Results WBC 24.80 10^3/uL (4.5-13.0) H 12/24/24 18:34 RBC 5.30 10^6/uL (3.85-5.65) 12/24/24 18:34 Hgb 15.10 g/dL (13.2-15.6) 12/24/24 18:34 Hct 43.9 % (37-53) 12/24/24 18:34 MCV 82.8 fl (82-101) 12/24/24 18: MCH 28.5 pg (27-33) 12/24/24 18:34 MCHC 34.4 g/dL (30-55) 12/24/24 18:34 RDW 12.2 % (12.1-15.1) 12/24/24 18:34 Plt Count 453 10^3/cmm (157-399) H 12/24/24 18:34 MPV 9.4 fL (7.4-10.4) 12/24/24 18:34 Neut % (Auto) 88.7 % 12/24/24 18:34 Lymph % (Auto) 4.6 % 12/24/24 18:34 [place] % (Auto) 5.3 % 12/24/24 18:34 Eos % (Auto) 0.1 % 12/24/24 18:34 Baso % (Auto) 0.3 % 12/24/24 18:34 Neut # (Auto) 21.99 10^3/uL (1.8-8.0) H 12/24/24 18:34 Lymph # (Auto) 1.1 10^3/uL (1.5-6.5) L 12/24/24 18:34 [place] # (Auto) 1.3 10^3/uL (0.2-0.9) H 12/24/24 18:34 Eos # (Auto) 0.0 10^3/uL (0.0-0.8) 12/24/24 18:34 Baso # (Auto) 0.1 10^3/uL (0.0-0.1) 12/24/24 18:34 Nucleated RBC % (auto) 0 % 12/24/24 18:34 Nucleated RBCs # 0.0 /100WBC 12/24/24 18:34 Sodium 142 mmol/L (136-145) 12/24/24 18:34 Potassium 3.7 mmol/L (3.5-5.1) 12/24/24 18:34 Chloride 103 mmol/L (98-107) 12/24/24 18:34 Carbon Dioxide 19 mmol/L (22-29) L 12/24/24 18:34 Anion Gap 23.7 (5-19) H 12/24/24 18:34 BUN 10 mg/dL (6-20) 12/24/24 18:34 Creatinine 0.6 mg/dL (0.7-1.2) L 12/24/24 18:34 GFR Calculation 171.8 mL/min (90-130) H 12/24/24 18:34 Glucose 139 mg/dL (65-115) H 12/24/24 18:34 Calculated Osmolality 295 mOsm/kg (285-295) 12/24/24 18:34 Lactic Acid 3.6 mmol/L (0.5-2.2) H 12/24/24 18:34 Lactic Acid (Sepsis) 1.6 mmol/L (0.5-2.2) 12/24/24 21:13 Calcium 9.9 mg/dL (8.5-10.5) 12/24/24 18:34 Total Bilirubin 0.5 mg/dL (0.15-1.2) 12/24/24 18:34 AST 23 U/L (0-40) 12/24/24 18:34 ALT 21 U/L (0-41) 12/24/24 18:34 Alkaline Phosphatase 104 U/L (40-130) 12/24/24 18:34 Total Protein 8.0 g/dL (6.6-8.7) 12/24/24 18:34 Albumin 4.9 g/dL (3.5-5.2) 12/24/24 18:34 Globulin 3.1 g/dL (1.3-4.6) 12/24/24 18:34 Urine Color Yellow (Yellow) 12/24/24 21:16 Urine Appearance Clear (CLEAR) 12/24/24 21:16 Urine pH >=9.0 (5-7) A 12/24/24 21:16 Ur Specific [place] 1.024 (1.005-1.030) 12/24/24 21:16 Urine Protein 2+ (Negative) A 12/24/24 21:16 Urine Glucose (UA) Negative (Normal) 12/24/24 21:16 Urine Ketones 3+ (Negative) H 12/24/24 21:16 Urine Blood Negative (Negative) 12/24/24 21: Urine Nitrate Negative (Negative) 12/24/24 21:16 Urine Bilirubin Negative (Negative) 12/24/24 21:16 Urine Urobilinogen 1.0 mg/dL (Negative) 12/24/24 21:16 Ur Leukocyte Esterase Trace (Negative) A 12/24/24 21: Urine RBC 0-2 /hpf (0-2) 12/24/24 21:16 Urine WBC 11-20 /hpf (0-5) H 12/24/24 21:16 Ur Squamous Epith Cells 0-5 /hpf (0-5) 12/24/24 21:16 Amorphous Sediment Not Reportable 12/24/24 21:16 Urine Bacteria None seen /hpf (NONE) 12/24/24 21:16 Hyaline Casts 16.96 /lpf 12/24/24 21:16 No radiology studies performed this visit Discharge Plan Discharge Patient Disposition: Home Clinical Impression: Nausea and vomiting Qualifiers: Vomiting type: unspecified Qualified Code(s): R11.2 - Nausea with vomiting, unspecified Condition: Stable Prescriptions: New promethazine 25 mg suppository 25 mg SC Q6H PRN (Reason: nausea and vomiting) Qty: 12 0RF No Action clonidine HCl 0.3 mg tablet 0.3 mg PO BEDTIME cephalexin 500 mg capsule 500 mg PO TID 7 Days Qty: 21 0RF albuterol sulfate 90 mcg/actuation Hfa Aerosol Inhaler 2 puff INHALATION QID PRN (Reason: Shortness Of Breath) amitriptyline 25 mg tablet 25 mg PO BEDTIME PRN (Reason: Sleep) Flonase Allergy Relief 50 mcg/actuation spray,suspension 2 spray intranasal DAILY PRN (Reason: Allergy Symptoms) Rx Instructions: administer into each nostril ondansetron 8 mg tablet,disintegrating 8 mg PO .q6 PRN (Reason: nausea and vomiting) Qty: 14 0RF diclofenac potassium 50 mg tablet 50 mg PO BID PRN (Reason: pain) Qty: 20 0RF Discharge Orders: Discharge ED (Routine); Ordered 12/24/24 Ordered By: Darek Diehl Referrals: Jesus Love MD [Primary Care Provider, Family Practice] Discharge Diet: Advance as tolerated and Full LIquid Discharge Activity: Increase activity as tolerated Patient Instructions: Acute Nausea and Vomiting (ED) Print Language: Yemeni Coding Level of Care Code ED Ostomy Care Nurse for Sha Villalobos
[2024-12-24 23:47] VITALS: BP 93/56; PULSE 109; O2SAT 96
== END 2024-12-24 23:40 | disposition home or self-care (01) ==
PROVIDERS: Emergency Provider Emergency Medicine; PCP Family Medicine
DX: R11.2 Nausea with vomiting, unspecified (principal)
CPT/HCPCS: 36415; 80053; 81001; 83605; 85025; 96372; 96374; 96375; 99284; J1630; J1885; J2405; J2550; J7030